=== PATIENT | female | born 1965 | race African-American/Black ===

== ENCOUNTER 2024-08-12 14:11 | Emergency (ER) | payer BC ==
[~2024-08-12] VITALS: Ht 165.1 cm; Wt 94.8 kg
[2024-08-12] MEDS: ONDANSETRON HCL INJ 2MG/ML 2ML 2 MG/ML VIAL IV STA (15:12)
[2024-08-12] MEDS: ASPIRIN 325 MG TAB PO ONE (15:12)
[2024-08-12] MEDS: SODIUM CHLORIDE 0.9% 1000ML 1,000 ML IV ONE (15:12)
[2024-08-12] MEDS ORDERED: ONDANSETRON ODT4 MG PO (16:06)
[2024-08-12 16:38] VITALS: PULSE 67; RESP 17; TEMP 98; O2SAT 100
== END 2024-08-12 17:12 | disposition home or self-care (01) ==
LOC: FSED 14:20
DX: R42 Dizziness and giddiness (principal); R11.2 Nausea with vomiting, unspecified; R19.7 Diarrhea, unspecified; E86.0 Dehydration; E86.1 Hypovolemia; R94.31 Abnormal electrocardiogram [ECG] [EKG]
CPT/HCPCS: 71046; 80053; 81003; 84484; 85025; 93005; 99283; J2405; J7030